=== PATIENT | male | born 1940 | race Caucasian/White ===

== ENCOUNTER 2018-06-05 08:30 | Observation (INO) ==
--- NOTE | 2018-06-05 09:18 | XR ---
EXAM DATE: 06/05/2018 9:01 AM EDT AGE/SEX: 78 years / Male INDICATIONS: Left base of 2nd and third digit infection and swelling. CLINICAL DATA: This is the patient's sequela encounter. Patient reports that signs and symptoms have been present for 3 days and indicates a pain score of 1/10. MEDICAL/SURGICAL HISTORY: None. None. COMPARISON: No prior exams available for comparison. FINDINGS: Soft tissue swelling base of the second and third digits without radiopaque foreign body or evidence for osteomyelitis CONCLUSION: Soft tissue swelling as above Electronically signed by: Severiano Mendiola MD 06/05/2018 9:17 AM EDT
[2018-06-05 09:26] LABS: Baso # (Auto) 0.1 th/mm3 (0.0-0.2); Eos # (Auto) 0.2 th/mm3 (0.0-0.4); Eos % (Auto) 1.6 % (0.0-4.0); Hematocrit 41.4 % (39.0-51.0); Hemoglobin 14.4 gm/dL (13.0-17.0); Lymph # (Auto) 2.1 th/mm3 (1.0-4.8); Lymph % (Auto) 19.2 % (9.0-44.0); Mean Corpuscular HGB Conc 34.7 % (32.0-36.0); Mean Corpuscular Hemoglobin 31.5 pg (27.0-34.0); Mean Corpuscular Volume 90.7 fL (80.0-100.0); Mean Platelet Volume 8.9 fL (7.0-11.0); Mono # (Auto) 0.8 th/mm3 (0.0-0.9); Mono % (Auto) 7.4 % (0.0-8.0); Neut # (Auto) 7.7 th/mm3 (1.8-7.7); Neut % (Auto) 70.8 % (16.0-70.0); Platelet Count 291 th/mm3 (150-450); Red Blood Count 4.56 mil/mm3 (4.50-5.90); Red Cell Distribution Width 15.9 % (11.6-17.2); White Blood Count 10.8 th/mm3 (4.0-11.0)
[2018-06-05 09:43] LABS: Prothrombin Time 10.4 sec (9.8-11.6)
[2018-06-05 09:44] LABS: Calcium 8.8 mg/dL (8.5-10.1); Carbon Dioxide 21.9 meq/L (21.0-32.0); Potassium 4.9 meq/L (3.5-5.1)
[2018-06-05] MEDS ORDERED: Vancomycin Inj 1 GM/200 ML PIGGYBACK IV.SIG SCH (10:00)
--- NOTE | 2018-06-05 10:36 | ED ---
HPI General Chief complaint: Skin/Abscess/Foreign Body Stated complaint: Skin Complaint Time Seen by Provider: 06/05/18 08:49 Source: patient Mode of arrival: ambulatory Limitations: no limitations History of Present Illness HPI narrative: Patient is a 78-year-old male who presents the emergency room complaints of cellulitis and abscess to his left hand. Patient reports that he noticed an abscess to his left hand and was seen in the emergency room on June 01, 2018. Patient was started on Keflex as well as Bactrim at the time , tetanus was updated. Patient reports that he has been compliant with his medications, reports that he noticed some streaking up his arm from the abscess site since yesterday. Patient reports that the infection is not getting better with Keflex and Bactrim. Patient does have wound cultures from June 01 which grew out MRSA. Related Data Home Medications Medication Instructions Recorded Confirmed aspirin [Aspirin Low Dose] 81 mg PO DAILY 06/01/18 06/01/18 coQ10 (ubiquinol) 100 mg PO DAILY 06/01/18 06/01/18 diclofenac sodium 75 mg PO Q OTHER DAY 06/01/18 06/01/18 folic acid 1 mg PO DAILY 06/01/18 06/05/18 methotrexate sodium 15 mg PO WEEKLY 06/01/18 06/05/18 multivitamin 1 tab PO DAILY 06/01/18 06/05/18 omeprazole 40 mg PO DAILY 06/01/18 06/05/18 oxybutynin chloride 10 mg PO DAILY 06/01/18 06/05/18 rosuvastatin [Crestor] 40 mg PO DAILY 06/01/18 06/05/18 tamsulosin 0.4 mg PO DAILY 06/01/18 06/05/18 Previous Rx's Medication Instructions Recorded cephalexin [Keflex] 500 mg PO QID 14 Days #56 cap 06/01/18 sulfamethoxazole-trimethoprim 1 tab PO BID 14 Days #28 tab 06/01/18 [Bactrim DS] Allergies Allergy/AdvReac Type Severity Reaction Status Date / Time No Known Allergies Allergy Verified 06/05/18 08:39 Review of Systems ROS: all other systems reviewed are negative [facility] Medical History Medical History Arthritis (Acute) Hypercholesteremia (Acute) Melanoma of back (Acute) Social History Social History Substance History: No History of Abuse Second Hand Smoke Exposure: No Smoking Status: Never smoker Tobacco Type: Cigarettes How Often Do You Have a Drink Containing Alcohol: Monthly or less Recent Travel in [facility] within the Last 8 Weeks: No Recent Out of Country Travel within the Last 8 Weeks: No Immunization History Tetanus Immunization: >5 Years Exam Narrative Exam Narrative: GENERAL: NAD SKIN: Focused skin assessment warm/dry. HEAD: Atraumatic. Normocephalic. EYES: Pupils equal and round. No scleral icterus. No injection or drainage. ENT: No nasal bleeding or discharge. Mucous membranes pink and moist. NECK: Trachea midline. No JVD. CARDIOVASCULAR: Regular rate and rhythm. No murmur appreciated. RESPIRATORY: No accessory muscle use. Clear to auscultation. Breath sounds equal bilaterally. GASTROINTESTINAL: Abdomen soft, non-tender, nondistended. Hepatic and splenic margins not palpable. MUSCULOSKELETAL: No obvious deformities. No clubbing. No cyanosis. No edema. Patient with a 4x6cm abscess with streaking up his whole arm to axilla NEUROLOGICAL: Awake and alert. No obvious cranial nerve deficits. Motor grossly within normal limits. Normal speech. PSYCHIATRIC: Appropriate mood and affect; insight and judgment normal. Course Initial Documented Vital Signs Temperature 97.9 F 06/05/18 08:35 Pulse Rate 81 06/05/18 08:35 Respiratory Rate 19 06/05/18 08:35 Blood Pressure 139/84 06/05/18 08:35 Pulse Oximetry 98 06/05/18 08:35 Last Documented Vital Signs Temperature 98.8 F 06/05/18 08:45 Pulse Rate 70 06/05/18 08:45 Respiratory Rate 16 06/05/18 08:45 Blood Pressure 137/83 06/05/18 08:45 Pulse Oximetry 98 06/05/18 08:35 Medical Decision Making MDM Narrative Medical decision making narrative: During the course of the patients emergency department visit, the patients history, examination, and differential diagnosis were reviewed with the patient. The patient was placed on a quality assurance monitor chassis with oximetry and frequent blood pressure monitoring. The patient had an IV access obtained and blood work sent for analysis. The patient was initially provided IV vancomycin, previous cultures were reviewed, he did grow out MRSA on 2017. Labs were reviewed, x-ray with no findings for osteomyelitis. Patient will require admission to the hospital for cellulitis as he failed outpatient treatment Case reviewed with Dr. Amaral who accepts pt to service Medical Screen Exam Complete: Yes Emergency Medical Condition: Yes Differential Diagnosis Differential Diagnosis: Abscess with cellulitis Medical Records Medical records reviewed: Yes I reviewed the patient's medical records. Lab Data Result diagrams: 06/05/18 09:15 06/05/18 09:15 Lab Results 06/05/18 06/05/18 06/05/18 Range/Units 09:15 09:15 09:15 WBC 10.8 (4.0-11.0) th/mm3 RBC 4.56 (4.50-5.90) mil/mm3 Hgb 14.4 (13.0-17.0) gm/dL Hct 41.4 (39.0-51.0) % MCV 90.7 (80.0-100.0) fL MCH 31.5 (27.0-34.0) pg MCHC 34.7 (32.0-36.0) % RDW 15.9 (11.6-17.2) % Plt Count 291 (150-450) th/mm3 MPV 8.9 (7.0-11.0) fL Neut % (Auto) 70.8 H (16.0-70.0) % Lymph % (Auto) 19.2 (9.0-44.0) % Sanborn % (Auto) 7.4 (0.0-8.0) % Eos % (Auto) 1.6 (0.0-4.0) % Baso % (Auto) 1.0 (0.0-2.0) % Neut # (Auto) 7.7 (1.8-7.7) th/mm3 Lymph # (Auto) 2.1 (1.0-4.8) th/mm3 [place]born # (Auto) 0.8 (0.0-0.9) th/mm3 Eos # (Auto) 0.2 (0.0-0.4) th/mm3 Baso # (Auto) 0.1 (0.0-0.2) th/mm3 WBC Differential . Differential Comment Auto diff final PT 10.4 (9.8-11.6) sec INR 1.0 Ratio Sodium 138 (136-145) meq/L Potassium 4.9 (3.5-5.1) meq/L Chloride 108 H (98-107) meq/L Carbon Dioxide 21.9 (21.0-32.0) meq/L Anion Gap 8 (5-15) meq/L BUN 13 (7-18) mg/dL Creatinine 1.13 (0.60-1.30) mg/dL Estimated GFR 63 L (>89) mL/min Random Glucose 90 (74-106) mg/dL Calcium 8.8 (8.5-10.1) mg/dL Imaging Data Attestation: I personally reviewed and interpreted this imaging study as follows : Radiologist's impression: Hand X-Ray 06/05/18 09:01 CONCLUSION: Soft tissue swelling as above Discharge Plan Discharge Disposition Patient Disposition: 30 Still Patient Discharge Condition Condition: Stable Discharge Details Diagnosis: Cellulitis and abscess of hand Physicians Team ED Provider: Jackie Humphreys Primary Care Provider: UNKNOWN, Rxs /Orders / Referrals /Forms Prescriptions: No Action methotrexate sodium 15 mg Tablet 15 mg PO WEEKLY RF: 0 oxybutynin chloride 10 mg Tablet Extended Release 24hr 10 mg PO DAILY RF: 0 tamsulosin 0.4 mg Capsule 0.4 mg PO DAILY RF: 0 folic acid 1 mg Tablet 1 mg PO DAILY RF: 0 rosuvastatin [Crestor] 40 mg Tablet 40 mg PO DAILY RF: 0 omeprazole 40 mg Capsule,Delayed Release(Dr/Ec) 40 mg PO DAILY RF: 0 aspirin [Aspirin Low Dose] 81 mg Tablet,Delayed Release (Dr/Ec) 81 mg PO DAILY RF: 0 coQ10 (ubiquinol) 100 mg Capsule 100 mg PO DAILY RF: 0 multivitamin Tablet 1 tab PO DAILY RF: 0 diclofenac sodium 75 mg Tablet,Delayed Release (Dr/Ec) 75 mg PO Q OTHER DAY RF: 0 sulfamethoxazole-trimethoprim [Bactrim DS] 800-160 mg tablet 1 tab PO BID 14 Days Qty: 28 RF: 0 cephalexin [Keflex] 500 mg capsule 500 mg PO QID 14 Days Qty: 56 RF: 0 Discharge Interventions Interventions: Vital Signs Last Done: 06/05/18 08:45 Status ED Status: With Doctor
[2018-06-05] MEDS ORDERED: Acetaminophen 325 MG Tablet PO PRN (11:59)
--- NOTE | 2018-06-05 12:08 | P.HPIM ---
History of Present Illness Primary Care Physician: UNKNOWN Chief Complaint: Left hand pain, erythema, swelling History of Present Illness: This patient is a 78-year-old male with a history of coronary artery disease status post stent approximately 10 years ago. 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 He ended up having a scrape on the dorsal aspect of his left hand. 2 days later he started to have pain and swelling of the left hand and was seen in our emergency department. The patient was discharged on Keflex and Bactrim and he was given a tetanus shot as per documentation. Wound cultures from that day grew MRSA. The patient symptoms got worse and now he returned to our emergency department for evaluation and care. He denies having any fevers or chills. No chest pain, no shortness of breath, no diarrhea, no nausea or vomiting. Past medical history coronary artery disease status post stent 10 years ago, BPH Surgical history none Family history noncontributory Social history patient denies any history of tobacco use. He drinks socially approximately 2-3 drinks per week. Inpatient Certification: I certify that the inpatient services were ordered in accordance with Medicare regulations governing the order. This includes certification that hospital inpatient services are reasonable and necessary and in the case of services not specified as inpatient-only under 42 CFR 419.22(n), that they are appropriately provided as inpatient services in accordance to with the 2-midnight benchmark under 43 CFR 412.3(e) Review of Systems All other systems reviewed negative except as stated in HPI [facility] - History History Provided By: Patient - Medical History Medical History: Medical History (Last Reviewed 06/05/18 @ 10:33 by Jackie Humphreys) Arthritis Hypercholesteremia Melanoma of back - Tobacco History Second Hand Smoke Exposure: No Tobacco Use In Past 30 Days: No Smoking Status: Never smoker Tobacco Type: Cigarettes - Alcohol History How Often Do You Have a Drink Containing Alcohol: Monthly or less - Substance Use History Substance History: No History of Abuse - Travel History Recent Travel in the [place] Within the Last 8 Weeks: No Recent Travel Out of the Country Within the Last 8 Weeks: No - Immunization History Tetanus Immunization: >5 Years Medications and Allergies Active Medications: Active Medications Acetaminophen (Tylenol) 650 mg PO Q4H PRN PRN Reason: PAIN 1-10 AND/OR FEVER >101F Aspirin (Aspirin Chew) 81 mg PO DAILY KIRBY Atorvastatin Calcium (Lipitor) 40 mg PO HS KIRBY Vancomycin/Sodium Chloride (Vancomycin Inj) 1 gm in 200 mls @ 200 mls/hr IV.SIG SLITTER OPERATOR KIRBY Ceftriaxone Sodium 1,000 mg/ (Sodium Chloride) 100 mls @ 200 mls/hr IV.SIG Q24H KIRBY Sodium Chloride (Ns Inj) 1,000 mls @ 100 mls/hr IV.CONT .Q10H KIRBY Sodium Chloride (Ns Flush) 2 ml IV.FLUSH PRN PRN PRN Reason: FLUSH AFTER USING IV ACCESS Tamsulosin HCl (Flomax) 0.4 mg PO DAILY K[facility]BY Allergies Allergy/AdvReac Type Severity Reaction Status Date / Time No Known Allergies Allergy Verified 06/05/18 08:39 Home Medications Medication Instructions Recorded Confirmed Type aspirin [Aspirin Low Dose] 81 mg PO DAILY 06/01/18 06/01/18 History coQ10 (ubiquinol) 100 mg PO DAILY 06/01/18 06/01/18 History diclofenac sodium 75 mg PO Q OTHER DAY 06/01/18 06/01/18 History folic acid 1 mg PO DAILY 06/01/18 06/05/18 History methotrexate sodium 15 mg PO WEEKLY 06/01/18 06/05/18 History multivitamin 1 tab PO DAILY 06/01/18 06/05/18 History omeprazole 40 mg PO DAILY 06/01/18 06/05/18 History oxybutynin chloride 10 mg PO DAILY 06/01/18 06/05/18 History rosuvastatin [Crestor] 40 mg PO DAILY 06/01/18 06/05/18 History tamsulosin 0.4 mg PO DAILY 06/01/18 06/05/18 History Exam Vital signs: Vital Signs 06/05/18 08:35 06/05/18 08:45 Temperature 97.9 F 98.8 F Pulse Rate 81 70 Respiratory Rate 19 16 Blood Pressure 139/84 137/83 Pulse Oximetry 98 Intake & Output 06/04/18 06/05/18 06/05/18 18:59 06:59 18:59 Weight 111.13 kg Narrative: General patient complains of mild pain in the left hand. HEENT extraocular movements are intact, clear oropharyngeal mucosa, no JVD Cardiovascular S1-S2 audible, RRR, no murmurs rubs or gallops Respiratory clear to auscultation bilaterally Abdomen soft, nontender, nondistended, normal bowel sounds Extremities pain and swelling of the left dorsal hand with redness tracking up the left upper extremity up to the left bicep. Neuro no neurological deficits. Results - Labs CBC & Chem 7: 06/05/18 09:15 06/05/18 09:15 Labs: Short CBC 06/05/18 Range/Units 09:15 WBC 10.8 (4.0-11.0) th/mm3 Hgb 14.4 (13.0-17.0) gm/dL Hct 41.4 (39.0-51.0) % Plt Count 291 (150-450) th/mm3 BMP 06/05/18 09:15 Sodium 138 Potassium 4.9 Chloride 108 H Carbon Dioxide 21.9 BUN 13 Creatinine 1.13 Calcium 8.8 - Imaging Impressions Hand X-Ray 06/05/18 09:01 CONCLUSION: Soft tissue swelling as above Caprini VTE Risk Assessment Caprini VTE Risk Assessment: No/Low Risk (score <= 1) Caprini Risk Assessment Model: Point Value = 1 Point Value = 2 Point Value = 3 Point Value = 5 Age 41-60 Minor surgery BMI > 25 kg/m2 Swollen legs Varicose veins or History of unexplained or recurrent spontaneous Oral contraceptives or hormone replacement Sepsis (< 1 month) Serious lung disease, including pneumonia (< 1 month) Abnormal pulmonary function Acute myocardial infarction Congestive heart failure (< 1 month) History of inflammatory bowel disease Medical patient at bed rest Age 61-74 Arthroscopic surgery Major open surgery (> 45 min) Laparoscopic surgery (> 45 min) Malignancy Confined to bed (> 72 hours) Immobilizing plaster cast Central venous access Age >= 75 History of VTE Family history of VTE Factor V Leiden Prothrombin [id number] Lupus anticoagulant Anticardiolipin antibodies Elevated serum homocysteine Heparin-induced thrombocytopenia Other congenital or acquired thrombophilia Stroke (< 1 month) Elective arthroplasty Hip, pelvis, or leg fracture Acute spinal cord injury (< 1 month) Prophylaxis Regimen: Total Risk Factor Score Risk Level Prophylaxis Regimen 0-1 Low Early ambulation 2 Moderate Order ONE of the following: *Sequential Compression Device (SCD) *Heparin 5000 units SQ BID 3-4 Higher Order ONE of the following medications: *Heparin 5000 units SQ TID *Enoxaparin/Lovenox 40 mg SQ daily (WT < 150 kg, CrCl > 30 mL/min) *Enoxaparin/Lovenox 30 mg SQ daily (WT < 150 kg, CrCl > 10-29 mL/min) *Enoxaparin/Lovenox 30 mg SQ BID (WT < 150 kg, CrCl > 30 mL/min) AND/OR *Sequential Compression Device (SCD) 5 or more Highest Order ONE of the following medications: *Heparin 5000 units SQ TID (Preferred with Epidurals) *Enoxaparin/Lovenox 40 mg SQ daily (WT < 150 kg, CrCl > 30 mL/min) *Enoxaparin/Lovenox 30 mg SQ daily (WT < 150 kg, CrCl > 10-29 mL/min) *Enoxaparin/Lovenox 30 mg SQ BID (WT < 150 kg, CrCl > 30 mL/min) AND *Sequential Compression Device (SCD) Assessment and Plan - Plan This patient is a 78-year-old male with a history of coronary artery disease status post stent approximately 10 years ago. 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 He ended up having a scrape on the dorsal aspect of his left hand. 2 days later he started to have pain and swelling of the left hand and was seen in our emergency department. The patient was discharged on Keflex and Bactrim and he was given a tetanus shot as per documentation. Wound cultures from that day grew MRSA. The patient symptoms got worse and now he returned to our emergency department for evaluation and care. He denies having any fevers or chills. 1. Left hand cellulitis failed outpatient Keflex and Bactrim. The patient is afebrile and has a normal WBC count. He does have some redness going up the left side of his arm up to the mid medial bicep region. He was started on IV vancomycin and Rocephin will also be added. He will be given Tylenol as needed for pain. The patient's pain medication regimen will be adjusted if needed. Continue IV fluids. The patient will likely need 1 or 2 days of IV antibiotics and can then be transitioned over to p.o. antibiotics. Blood cultures will be followed up. All consult hand surgery to evaluate the patient's hand for possible incision and drainage. 2. Coronary artery disease status post stent Continue aspirin Continue statin 3. BPH Continue Flomax The patient is ambulatory no pharmacotherapy for DVT prophylaxis.
[2018-06-05] MEDS: Sod Chloride 0.9% Inj 1,000 ML IV.CONT SCH ×3 (13:31→22:48)
--- NOTE | 2018-06-05 17:19 | P.CON ---
History of Present Illness Service: Hand surgery Consult date: 06/05/18 Primary Care Provider: UNKNOWN Chief Complaint: Left hand pain, erythema, swelling History of Present Illness: History obtained from chart and patient This patient is a 78-year-old male who presents with a several day history of left dorsal hand pain. Patient recalls scratching his hand underneath a dirty table while cleaning a floor almost 1 week ago. He reports that since then the left dorsal hand became progressively more swollen, erythematous, and painful. 2 days later he started to have pain and swelling of the left hand and was seen in our emergency department. The patient was discharged on Keflex and Bactrim and he was given a tetanus shot as per documentation. Wound cultures from that day grew MRSA. The patient symptoms got worse and now he returned to our emergency department for evaluation and care. He denies having any fevers or chills. No chest pain, no shortness of breath, no diarrhea, no nausea or vomiting. Past medical history coronary artery disease status post stent 10 years ago, BPH Surgical history none Family history noncontributory Social history patient denies any history of tobacco use. He drinks socially approximately 2-3 drinks per week. Medication list reviewed Review of Systems All other systems reviewed negative except as stated in HPI [facility] - History History Provided By: Patient - Medical History Medical History: Medical History (Last Reviewed 06/05/18 @ 10:33 by Jackie Humphreys) Arthritis Hypercholesteremia Melanoma of back - Tobacco History Second Hand Smoke Exposure: No Tobacco Use In Past 30 Days: No Smoking Status: Never smoker Tobacco Type: Cigarettes - Alcohol History How Often Do You Have a Drink Containing Alcohol: Monthly or less - Substance Use History Substance History: No History of Abuse - Travel History Recent Travel in the [place] Within the Last 8 Weeks: No Recent Travel Out of the Country Within the Last 8 Weeks: No - Immunization History Tetanus Immunization: >5 Years [facility] - History History Provided By: Patient - Medical History Medical History: Medical History (Last Updated 06/05/18 @ 14:45 by Lana Almanzar) MDRO (multiple drug resistant organisms) resistance Onset Date: ~06/01/18 Arthritis Hypercholesteremia Melanoma of back - Tobacco History Second Hand Smoke Exposure: No Tobacco Use In Past 30 Days: No Smoking Status: Former smoker Tobacco Type: Cigarettes - Alcohol History How Often Do You Have a Drink Containing Alcohol: Monthly or less - Substance Use History Substance History: No History of Abuse - Travel History Recent Travel in the [place] Within the Last 8 Weeks: No Recent Travel Out of the Country Within the Last 8 Weeks: No - Immunization History Tetanus Immunization: <5 Years Medications and Allergies Active Medications: Active Medications Acetaminophen (Tylenol) 650 mg PO Q4H PRN PRN Reason: PAIN 1-10 AND/OR FEVER >101F Aspirin (Aspirin Chew) 81 mg PO DAILY KIRBY Atorvastatin Calcium (Lipitor) 40 mg PO HS KIRBY Vancomycin/Sodium Chloride (Vancomycin Inj) 1 gm in 200 mls @ 200 mls/hr IV.SIG CONSUMER INSIGHT ANALYST KIRBY Ceftriaxone Sodium 1,000 mg/ (Sodium Chloride) 100 mls @ 200 mls/hr IV.SIG Q24H KIRBY Last Infusion: 06/05/18 14:15 Dose: Infused Sodium Chloride (Ns Inj) 1,000 mls @ 100 mls/hr IV.CONT .Q10H KIRBY Last Admin: 06/05/18 13:31 Dose: 100 mls/hr Sodium Chloride (Ns Flush) 2 ml IV.FLUSH PRN PRN PRN Reason: FLUSH AFTER USING IV ACCESS Tamsulosin HCl (Flomax) 0.4 mg PO DAILY [facility] Allergies Allergy/AdvReac Type Severity Reaction Status Date / Time No Known Allergies Allergy Verified 06/05/18 08:39 Home Medications Medication Instructions Recorded Confirmed Type folic acid 1 mg PO DAILY 06/01/18 06/05/18 History methotrexate sodium 15 mg PO WEEKLY 06/01/18 06/05/18 History multivitamin 1 tab PO DAILY 06/01/18 06/05/18 History omeprazole 40 mg PO DAILY 06/01/18 06/05/18 History oxybutynin chloride 10 mg PO DAILY 06/01/18 06/05/18 History rosuvastatin [Crestor] 40 mg PO DAILY 06/01/18 06/05/18 History tamsulosin 0.4 mg PO DAILY 06/01/18 06/05/18 History Physical Exam Vital signs: Vital Signs 06/05/18 08:35 06/05/18 08:45 Temperature 97.9 F 98.8 F Pulse Rate 81 70 Respiratory Rate 19 16 Blood Pressure 139/84 137/83 Pulse Oximetry 98 Intake & Output 06/04/18 06/05/18 06/05/18 18:59 06:59 18:59 Intake Total 100 / 100 Balance 100 / 100 Weight 111.13 kg Intake: IV 100 / 100 Rocephin Inj 1,000 MG In NS Inj 100 / 100 100 ML @ 200 mls/hr IV.SIG Q24H KIRBY Rx#:[id number] Narrative: Left second webspace with roughly 3 cm raised erythematous area with central sinus draining purulence Wound sinus opening bluntly probed with the wooden end of a Q-tip without significant tracking No undrained purulence appreciated Moderate lymphatic streaking to mid forearm Full active range of motion No volar tenderness/erythema Assessment and Plan - Assessment (1) Cellulitis and abscess of hand Code(s): L03.119 - Cellulitis of unspecified part of limb; L02.519 - Cutaneous abscess of unspecified hand Status: Acute - Plan 78-year-old male with left dorsal hand abscess which appears to be spontaneously draining, with moderate lymphatic streaking/cellulitis No undrained collections appreciated Agree with IV antibiotics per primary Please call with questions
[2018-06-06] MEDS: Sod Chloride 0.9% Inj 1,000 ML IV.CONT SCH ×4 (05:52→20:05)
--- NOTE | 2018-06-06 11:50 | P.PN ---
Subjective Interval history: Patient is resting comfortably in bed. Upset with his bed, and table. Has many questions about his care. 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 Otherwise doing well. No fever, chills, nightsweats, nausea, vomiting, chest pain. Physical Exam Vital signs: Vital Signs 06/05/18 16:00 06/05/18 20:00 06/06/18 00:00 Temperature 97.9 F 98.8 F 98.2 F Pulse Rate 67 69 68 Respiratory Rate 18 16 16 Blood Pressure 131/66 131/66 126/77 Pulse Oximetry 95 98 98 06/06/18 04:00 06/06/18 08:00 Temperature 98.3 F 97.9 F Pulse Rate 65 71 Respiratory Rate 16 23 Blood Pressure 113/74 138/69 Pulse Oximetry 97 98 Intake & Output 06/05/18 06/06/18 06/06/18 18:59 06:59 18:59 Intake Total 100 / 100 2000 / 2000 500 / 500 Output Total 750 / 750 Balance 100 / 100 1250 / 1250 500 / 500 Weight 111.13 kg 107 kg Intake: IV 100 / 100 2000 / 2000 500 / 500 NS Inj 1,000 ML @ 100 mls/hr IV 2000 / 2000 500 / 500 .CONT .Q10H [facility] Rx#:[id number] Rocephin Inj 1,000 MG In NS Inj 100 / 100 100 ML @ 200 mls/hr IV.SIG Q24H [facility] Rx#:[id number] Output: Urine 750 / 750 Other: Weight On Admission 107 kg Narrative: GENERAL: 78 year old male in NAD, alert and oriented x3. SKIN: Warm and dry. Tender 2 cm erythematous patch on the left dorsal hand, with eschar and pustule. Streaks of tender erythema on the forearm and upper arm. HEAD: Atraumatic. Normocephalic. EYES: Pupils equal and round. No scleral icterus. No injection or drainage. ENT: No nasal bleeding or discharge. Mucous membranes pink and moist. NECK: Trachea midline. No JVD. CARDIOVASCULAR: Regular rate and rhythm. RESPIRATORY: No accessory muscle use. Clear to auscultation. Breath sounds equal bilaterally. GASTROINTESTINAL: Abdomen soft, non-tender, nondistended. Hepatic and splenic margins not palpable. MUSCULOSKELETAL: Extremities without clubbing, cyanosis, or edema. No obvious deformities. NEUROLOGICAL: Awake and alert. No obvious cranial nerve deficits. Motor grossly within normal limits. Normal speech. PSYCHIATRIC: Appropriate mood and affect; insight and judgment normal. Results - Labs CBC & Chem 7: 06/05/18 09:15 06/05/18 09:15 Microbiology 06/05/18 09:15 Blood - Peripheral Aerobic Blood Culture - Preliminary No growth in 1 day 06/05/18 09:15 Blood - Peripheral Anaerobic Blood Culture - Preliminary No growth in 1 day 06/05/18 09:10 Blood - Peripheral Aerobic Blood Culture - Preliminary No growth in 1 day 06/05/18 09:10 Blood - Peripheral Anaerobic Blood Culture - Preliminary No growth in 1 day Assessment and Plan - Assessment (1) Cellulitis and abscess of hand Code(s): L03.119 - Cellulitis of unspecified part of limb; L02.519 - Cutaneous abscess of unspecified hand Status: Acute - Plan Left hand cellulitis failed outpatient Keflex and Bactrim. The patient is afebrile and has a normal WBC count. He does have some redness going up the left side of his arm up to the mid medial bicep region. IV vancomycin and Rocephin Tylenol PRN pain Continue IV fluids. The patient will likely need 1 or 2 days of IV antibiotics and can then be transitioned over to p.o. antibiotics. Blood cultures pending Hand surgery consulted: No undrained collections appreciated, Agree with IV antibiotics per primary Coronary artery disease status post stent Continue aspirin Continue statin BPH Continue Flomax Polychondritis Patient experiences SOB due to polychondritis, takes diclofenac at home Restart diclofenac DVT ppx: Early ambulation Code Status: Full Discharge Planning: Pending blood cultures and abx response
[2018-06-06] MEDS ORDERED: Vancomycin Consult Pharmacy OTHER PRN (13:00)
[2018-06-06] MEDS ORDERED: Vancomycin Inj 1,000 MG in Sodium Chlor 0.9% Inj 250 ML IV.SIG SCH (13:01)
--- NOTE | 2018-06-06 13:10 | P.PN ---
Subjective Interval history: Patient in [facility] Has some pain at the left arm , erythema is extending to upper arm tracking. Has normal ROM of wrist , fingers. No n/v/d/c. Denies chest pain or sob No fever or chills Physical Exam Vital signs: Vital Signs 06/05/18 16:00 06/05/18 20:00 06/06/18 00:00 Temperature 97.9 F 98.8 F 98.2 F Pulse Rate 67 69 68 Respiratory Rate 18 16 16 Blood Pressure 131/66 131/66 126/77 Pulse Oximetry 95 98 98 06/06/18 04:00 06/06/18 08:00 06/06/18 12:00 Temperature 98.3 F 97.9 F 97.3 F L Pulse Rate 65 71 70 Respiratory Rate 16 23 23 Blood Pressure 113/74 138/69 137/82 Pulse Oximetry 97 98 97 Intake & Output 06/05/18 06/06/18 06/06/18 18:59 06:59 18:59 Intake Total 100 / 100 2000 / 2000 500 / 500 Output Total 750 / 750 Balance 100 / 100 1250 / 1250 500 / 500 Weight 111.13 kg 107 kg Intake: IV 100 / 100 2000 / 2000 500 / 500 NS Inj 1,000 ML @ 100 mls/hr IV 2000 / 2000 500 / 500 .CONT .Q10H [facility] Rx#:[id number] Rocephin Inj 1,000 MG In NS Inj 100 / 100 100 ML @ 200 mls/hr IV.SIG Q24H [facility] Rx#:[id number] Output: Urine 750 / 750 Other: Weight On Admission 107 kg Narrative: GENERAL: 78 year old male in [facility], alert and oriented x3. SKIN: Warm and dry. Tender 2 cm erythematous patch on the left dorsal hand, with eschar and pustule. Streaks of tender erythema on the forearm and upper arm. CARDIOVASCULAR: Regular rate and rhythm. RESPIRATORY: No accessory muscle use. Clear to auscultation. Breath sounds equal bilaterally. GASTROINTESTINAL: Abdomen soft, non-tender, nondistended. Hepatic and splenic margins not palpable. MUSCULOSKELETAL: Extremities without clubbing, cyanosis, or edema. No obvious deformities. NEUROLOGICAL: Awake and alert. No obvious cranial nerve deficits. Motor grossly within normal limits. Normal speech. PSYCHIATRIC: Appropriate mood and affect; insight and judgment normal. Results - Labs CBC & Chem 7: 06/05/18 09:15 06/05/18 09:15 Microbiology 06/05/18 09:15 Blood - Peripheral Aerobic Blood Culture - Preliminary No growth in 1 day 06/05/18 09:15 Blood - Peripheral Anaerobic Blood Culture - Preliminary No growth in 1 day 06/05/18 09:10 Blood - Peripheral Aerobic Blood Culture - Preliminary No growth in 1 day 06/05/18 09:10 Blood - Peripheral Anaerobic Blood Culture - Preliminary No growth in 1 day Assessment and Plan - Plan Left hand cellulitis failed outpatient Keflex and Bactrim. The patient is afebrile and has a normal WBC count. He does have some redness going up the left side of his arm up to the mid medial bicep region. IV vancomycin, consult pharmacy for vanco level and DC Rocephin. Will consult ID as patient with failed treatment as OP Tylenol PRN pain Continue IV fluids. The patient will likely need 1 or 2 days of IV antibiotics and can then be transitioned over to p.o. antibiotics. Blood cultures pending Hand surgery consulted: No surgical intervention recommended at this time, recommends continuing IV abx Coronary artery disease status post stent Continue aspirin Continue statin BPH Continue Flomax Polychondritis Patient experiences SOB due to polychondritis, takes diclofenac at home Restart diclofenac DVT ppx: Early ambulation Code Status: Full Discharge Planning: Pending blood cultures and abx response, ID and hand surgeon clearance
[2018-06-06] MEDS: Tolterodine Tartrate LA 4 MG Capsule PO SCH (15:37)
[2018-06-06] MEDS: Vancomycin Inj 1,500 MG in Sodium Chlor 0.9% Inj 500 ML IV.SIG SCH (15:38)
--- NOTE | 2018-06-06 17:37 | P.PNADD ---
Addendum to Inpatient Note Additional information: pt seen around 1630, chart reviewed full note to follow pete PEÑA
--- NOTE | 2018-06-06 17:37 | P.CONID ---
History of Present Illness Service: ID Consult date: 06/06/18 Requesting Physician: Linda Calzada Reason for Consult: hand infection Primary Care Provider: UNKNOWN Chief Complaint: Left hand pain, erythema, swelling History of Present Illness: 78 yo male w/o past med history developped progressive swelling, redness of dorsum of his L hand Cant recall how he got it Denies known trauma No fresh/salt water reacreational exposure no fever no leuocytosis Started o empiric abx with marked improvement See by hand surgeron who recommended conservative tx CUlture + for MRSA Review of Systems All other systems reviewed negative except as stated in HPI PMFSH - History History Provided By: Patient - Medical History Medical History: Medical History (Last Reviewed 06/07/18 @ 00:43 by Kinga Man MD) MDRO (multiple drug resistant organisms) resistance Onset Date: ~06/01/18 Arthritis Hypercholesteremia Melanoma of back - Family History Family History: Family History (Last Updated 06/07/18 @ 00:43 by Kinga Man MD) Other No pertinent family history - Social History I have reviewed the patient's Social History: Yes - Tobacco History Second Hand Smoke Exposure: No Tobacco Use In Past 30 Days: No Smoking Status: Former smoker Tobacco Type: Cigarettes - Alcohol History How Often Do You Have a Drink Containing Alcohol: Monthly or less - Substance Use History Substance History: No History of Abuse - Travel History Recent Travel in the [place] Within the Last 8 Weeks: No Recent Travel Out of the Country Within the Last 8 Weeks: No - Immunization History Tetanus Immunization: <5 Years Medications and Allergies Active Medications: Active Medications Acetaminophen (Tylenol) 650 mg PO Q4H PRN PRN Reason: PAIN 1-10 AND/OR FEVER >101F Aspirin (Aspirin Chew) 81 mg PO DAILY [facility] Last Admin: 06/06/18 10:07 Dose: 81 mg Atorvastatin Calcium (Lipitor) 80 mg PO DAILY [facility] Diclofenac Sodium (Voltared Dr.) 25 mg PO BID PRN PRN Reason: pain Folic Acid (Folic Acid) 1 mg PO DAILY [facility] Vancomycin/Sodium Chloride (Vancomycin Inj) 1 gm in 200 mls @ 200 mls/hr IV.SIG [facility] Sodium Chloride (Ns Inj) 1,000 mls @ 100 mls/hr IV.CONT .Q10H [facility] Last Admin: 06/06/18 15:41 Dose: 100 mls/hr Vancomycin HCl 1,500 mg/ (Sodium Chloride) 515 mls @ 250 mls/hr IV.SIG Q18H [facility] Last Admin: 06/06/18 15:38 Dose: 250 mls/hr Miscellaneous Information ([facility] Ordered Lab Info) 0 each OTHER ONCE ONE Stop: 06/08/18 21:46 Pantoprazole Sodium (Protonix) 40 mg PO DAILY [facility] Last Admin: 06/06/18 15:36 Dose: 40 mg Pharmacy Profile Note (Vancomycin Consult Pharmacy) 1 each OTHER UNSCH PRN PRN Reason: Pharmacy to dose Sodium Chloride (Ns Flush) 2 ml IV.FLUSH PRN PRN PRN Reason: FLUSH AFTER USING IV ACCESS Tamsulosin HCl (Flomax) 0.4 mg PO DAILY [facility] Last Admin: 06/06/18 15:38 Dose: 0.4 mg Tolterodine Tartrate (Detrol La) 4 mg PO DAILY [facility] Last Admin: 06/06/18 15:37 Dose: 4 mg Allergies Allergy/AdvReac Type Severity Reaction Status Date / Time No Known Allergies Allergy Verified 06/05/18 08:39 Home Medications Medication Instructions Recorded Confirmed Type folic acid 1 mg PO DAILY 06/01/18 06/05/18 History methotrexate sodium 15 mg PO WEEKLY 06/01/18 06/05/18 History multivitamin 1 tab PO DAILY 06/01/18 06/05/18 History omeprazole 40 mg PO DAILY 06/01/18 06/05/18 History oxybutynin chloride 10 mg PO DAILY 06/01/18 06/05/18 History rosuvastatin [Crestor] 40 mg PO DAILY 06/01/18 06/05/18 History tamsulosin 0.4 mg PO DAILY 06/01/18 06/05/18 History Exam Vital signs: Vital Signs 06/05/18 20:00 06/06/18 00:00 06/06/18 04:00 Temperature 98.8 F 98.2 F 98.3 F Pulse Rate 69 68 65 Respiratory Rate 16 16 16 Blood Pressure 131/66 126/77 113/74 Pulse Oximetry 98 98 97 06/06/18 08:00 06/06/18 12:00 06/06/18 16:00 Temperature 97.9 F 97.3 F L 97.2 F L Pulse Rate 71 70 62 Respiratory Rate 23 23 22 Blood Pressure 138/69 137/82 136/80 Pulse Oximetry 98 97 98 Intake & Output 06/05/18 06/06/18 06/06/18 18:59 06:59 18:59 Intake Total 100 / 100 2000 / 2000 1100 / 1100 Output Total 750 / 750 Balance 100 / 100 1250 / 1250 1100 / 1100 Weight 111.13 kg 107 kg Intake: IV 100 / 100 2000 / 2000 1100 / 1100 NS Inj 1,000 ML @ 100 mls/hr IV 2000 / 2000 1000 / 1000 .CONT .Q10H [facility] Rx#:[id number] Rocephin Inj 1,000 MG In NS Inj 100 / 100 100 / 100 100 ML @ 200 mls/hr IV.SIG Q24H [facility] Rx#:[id number] Output: Urine 750 / 750 Other: Date of Last Bowel Movement 06/06/18 Weight On Admission 107 kg - Constitutional no acute distress, average body habitus - Routine HEENT Exam Head: Present: normocephalic, atraumatic Eye: Present: EOMI, PERRL. Absent: conjunctival icterus ENT: Present: mucous membranes moist, oropharynx clear - Routine Neck Exam Present: supple. Absent: JVD - Routine Respiratory Exam Present: CTA bilaterally. Absent: accessory muscle use, distant breath sounds - Routine Cardiovascular Exam Present: RRR, S1, S2. Absent: murmur, gallop - Routine Abdominal Exam Present: soft, normoactive bowel sounds. Absent: tenderness, distended, organomegaly, mass - Routine Extremities Exam Absent: cyanosis, clubbing, edema Comments: Erythema, midl edema of dorsum of L hand small area of fluctuant lesion, not draining + ascending lymphagitic streaks on upper inner arm - Routine Skin Exam Present: dry, warm. Absent: jaundice, rash - Routine Neurological Exam Present: alert, oriented X3, CN II-XII intact, moving all extremities, normal speech Results - Labs CBC & Chem 7: 06/05/18 09:15 06/05/18 09:15 Assessment and Plan - Plan L hand abscess, MRSA cellulitis, lymphngitis LUE cont vancomycin monitor hand for the need of I+D dw Dr Calzada
[2018-06-07] MEDS: Sod Chloride 0.9% Inj 1,000 ML IV.CONT SCH ×2 (03:00→14:27)
[2018-06-07] MEDS: Tolterodine Tartrate LA 4 MG Capsule PO SCH (09:58)
[2018-06-07] MEDS: Vancomycin Inj 1,500 MG in Sodium Chlor 0.9% Inj 500 ML IV.SIG SCH (09:59)
[2018-06-07] MEDS: Folic Acid 1 MG Tablet PO SCH (09:59)
--- NOTE | 2018-06-07 10:54 | P.PN ---
Subjective Interval history: Patient sitting on couch in room. Patient is distressed, had to go to the ER downstairs today. Has heard that she is "just resting" now and is more relaxed. He states his hand is improving and becoming less red. He denies fever , chills, chest pain, SOB, changes in urinary habits Physical Exam Vital signs: Vital Signs 06/06/18 12:00 06/06/18 16:00 06/06/18 20:00 Temperature 97.3 F L 97.2 F L 98 F Pulse Rate 70 62 67 Respiratory Rate 23 22 18 Blood Pressure 137/82 136/80 128/77 Pulse Oximetry 97 98 96 06/07/18 00:00 06/07/18 04:00 06/07/18 08:00 Temperature 97.7 F 97.7 F 97.6 F Pulse Rate 51 L 62 60 Respiratory Rate 18 18 23 Blood Pressure 112/67 121/71 124/72 Pulse Oximetry 97 97 98 Intake & Output 06/06/18 06/07/18 06/07/18 18:59 06:59 18:59 Intake Total 2575 / 2575 1210 / 1210 Output Total 750 / 750 Balance 2575 / 2575 460 / 460 Weight 107 kg Intake: IV 1615 / 1615 1000 / 1000 NS Inj 1,000 ML @ 100 mls/hr IV 1000 / 1000 1000 / 1000 .CONT .Q10H [facility] Rx#:[id number] Vancomycin Inj 1,500 MG In NS 515 / 515 Inj 500 ML @ 250 mls/hr IV.SIG Q18H [facility] Rx#:[id number] Rocephin Inj 1,000 MG In NS Inj 100 / 100 100 ML @ 200 mls/hr IV.SIG Q24H [facility] Rx#:[id number] Oral 960 / 960 210 / 210 Output: Urine 750 / 750 Other: # Voids 4 1 Date of Last Bowel Movement 06/06/18 06/06/18 Narrative: GENERAL: 78 year old male in NAD, alert and oriented x3. SKIN: Warm and dry. Tender 2 cm erythematous patch on the left dorsal hand, with eschar and pustule. Streaks of tender erythema on the forearm and upper arm. CARDIOVASCULAR: Regular rate and rhythm. RESPIRATORY: No accessory muscle use. Clear to auscultation. Breath sounds equal bilaterally. GASTROINTESTINAL: Abdomen soft, non-tender, nondistended. Hepatic and splenic margins not palpable. MUSCULOSKELETAL: Extremities without clubbing, cyanosis, or edema. No obvious deformities. NEUROLOGICAL: Awake and alert. No obvious cranial nerve deficits. Motor grossly within normal limits. Normal speech. PSYCHIATRIC: Appropriate mood and affect; insight and judgment normal. Results - Labs CBC & Chem 7: 06/05/18 09:15 06/05/18 09:15 Microbiology 06/05/18 09:15 Blood - Peripheral Aerobic Blood Culture - Preliminary No growth in 1 day 06/05/18 09:15 Blood - Peripheral Anaerobic Blood Culture - Preliminary No growth in 1 day 06/05/18 09:10 Blood - Peripheral Aerobic Blood Culture - Preliminary No growth in 1 day 06/05/18 09:10 Blood - Peripheral Anaerobic Blood Culture - Preliminary No growth in 1 day Assessment and Plan - Assessment (1) Cellulitis and abscess of hand Code(s): L03.119 - Cellulitis of unspecified part of limb; L02.519 - Cutaneous abscess of unspecified hand Status: Acute - Plan Left hand cellulitis failed outpatient Keflex and Bactrim. The patient is afebrile and has a normal WBC count. He does have some redness going up the left side of his arm up to the mid medial bicep region. IV vancomycin Tylenol PRN pain Continue IV fluids. The patient will likely need 1 or 2 days of IV antibiotics and can then be transitioned over to p.o. antibiotics. Blood cultures pending Hand surgery consulted: No undrained collections appreciated, Agree with IV antibiotics per primary Coronary artery disease status post stent Continue aspirin Continue statin BPH Continue Flomax Polychondritis Patient experiences SOB due to polychondritis, takes diclofenac at home Restart diclofenac DVT ppx: Early ambulation Discharge Planning: Pending blood cultures and abx response
--- NOTE | 2018-06-07 14:18 | P.PN ---
Subjective Interval history: In bed, appears in nad He was upset in the morning as his is also in the hospital in the ED. However she is much better now and he feel better Says no fever or chills overnight Says his wound is getting better and hand doctor was able to squish some pus. Pain is fairly controlled by meds No n/v/d/c. No palpitations or cough Physical Exam Vital signs: Vital Signs 06/06/18 16:00 06/06/18 20:00 06/07/18 00:00 Temperature 97.2 F L 98 F 97.7 F Pulse Rate 62 67 51 L Respiratory Rate 22 18 18 Blood Pressure 136/80 128/77 112/67 Pulse Oximetry 98 96 97 06/07/18 04:00 06/07/18 08:00 06/07/18 12:00 Temperature 97.7 F 97.6 F 97.7 F Pulse Rate 62 60 68 Respiratory Rate 18 23 22 Blood Pressure 121/71 124/72 123/70 Pulse Oximetry 97 99 99 Intake & Output 06/06/18 06/07/18 06/07/18 18:59 06:59 18:59 Intake Total 2575 / 2575 1210 / 1210 515 / 515 Output Total 750 / 750 Balance 2575 / 2575 460 / 460 515 / 515 Weight 107 kg Intake: IV 1615 / 1615 1000 / 1000 515 / 515 NS Inj 1,000 ML @ 100 mls/hr IV 1000 / 1000 1000 / 1000 .CONT .Q10H [facility] Rx#:[id number] Vancomycin Inj 1,500 MG In NS 515 / 515 515 / 515 Inj 500 ML @ 250 mls/hr IV.SIG Q18H [facility] Rx#:[id number] Rocephin Inj 1,000 MG In NS Inj 100 / 100 100 ML @ 200 mls/hr IV.SIG Q24H [facility] Rx#:[id number] Oral 960 / 960 210 / 210 Output: Urine 750 / 750 Other: # Voids 4 1 Date of Last Bowel Movement 06/06/18 06/06/18 Narrative: GENERAL: 78 year old male in [facility], alert and oriented x3. SKIN: Warm and dry. Tender 2 cm erythematous patch on the left dorsal hand, with eschar and pustule. Streaks of tender erythema on the forearm and upper arm. CARDIOVASCULAR: Regular rate and rhythm. RESPIRATORY: No accessory muscle use. Clear to auscultation. Breath sounds equal bilaterally. GASTROINTESTINAL: Abdomen soft, non-tender, nondistended. Hepatic and splenic margins not palpable. MUSCULOSKELETAL: Extremities without clubbing, cyanosis, or edema. No obvious deformities. NEUROLOGICAL: Awake and alert. No obvious cranial nerve deficits. Motor grossly within normal limits. Normal speech. PSYCHIATRIC: Appropriate mood and affect; insight and judgment normal. Results - Labs CBC & Chem 7: 06/05/18 09:15 06/05/18 09:15 Microbiology 06/05/18 09:15 Blood - Peripheral Aerobic Blood Culture - Preliminary No growth in 2 days 06/05/18 09:15 Blood - Peripheral Anaerobic Blood Culture - Preliminary No growth in 2 days 06/05/18 09:10 Blood - Peripheral Aerobic Blood Culture - Preliminary No growth in 2 days 06/05/18 09:10 Blood - Peripheral Anaerobic Blood Culture - Preliminary No growth in 2 days Assessment and Plan - Plan Left hand cellulitis/abscess MRSA, failed outpatient Keflex and Bactrim. Lymphangitis LUE The patient is afebrile and has a normal WBC count. He does have some redness going up the left side of his arm up to the mid medial bicep region. Continue IV vancomycin, consult pharmacy for vanco level. Consult ID as patient with failed treatment as OP , ID ff, appreciate recommendations Tylenol PRN pain Continue IV fluids. The patient will likely need 1 or 2 days of IV antibiotics and can then be transitioned over to p.o. antibiotics. Blood cultures pending Hand surgery consulted: No surgical intervention recommended at this time, recommends continuing IV abx L hand abscess, MRSA monitor hand for the need of I+D Coronary artery disease status post stent Continue aspirin Continue statin BPH Continue Flomax Polychondritis Patient experiences SOB due to polychondritis, takes diclofenac at home Restart diclofenac DVT ppx: Early ambulation Code Status: Full Discharge Planning: Pending blood cultures and abx response, ID and hand surgeon clearance Discussed with the patient, nurse.
[2018-06-08] MEDS: Sod Chloride 0.9% Inj 1,000 ML IV.CONT SCH ×2 (00:30→12:07)
[2018-06-08] MEDS: Vancomycin Inj 1,500 MG in Sodium Chlor 0.9% Inj 500 ML IV.SIG SCH (04:04)
[2018-06-08] MEDS: Folic Acid 1 MG Tablet PO SCH (10:01)
[2018-06-08] MEDS: Tolterodine Tartrate LA 4 MG Capsule PO SCH (10:01)
[2018-06-08 10:54] VITALS: O2SAT 97
--- NOTE | 2018-06-08 14:31 | P.PN ---
Subjective Interval history: Follow up: left hand cellulitis/abscess Patient reports that his hand has improved greatly wants to go home Physical Exam Vital signs: Vital Signs 06/07/18 15:56 06/07/18 16:00 06/07/18 20:00 Temperature 98.0 F 97.7 F Pulse Rate 70 59 L Respiratory Rate 23 18 Blood Pressure 148/70 H 121/69 Pulse Oximetry 99 99 97 06/08/18 00:00 06/08/18 04:00 06/08/18 08:00 Temperature 97.7 F 97.8 F 97.7 F Pulse Rate 65 57 L 66 Respiratory Rate 18 18 17 Blood Pressure 136/75 122/69 163/88 H Pulse Oximetry 97 94 L 97 Intake & Output 06/07/18 06/08/18 06/08/18 18:59 06:59 18:59 Intake Total 1994 1515 / 1515 1000 / 1000 Balance 1994 1515 / 1515 1000 / 1000 Weight 107 kg Intake: IV 1515 / 1515 1515 / 1515 1000 / 1000 NS Inj 1,000 ML @ 100 mls/hr IV 1000 / 1000 1000 / 1000 1000 / 1000 .CONT .Q10H [facility] Rx#:[id number] Vancomycin Inj 1,500 MG In NS 515 / 515 515 / 515 Inj 500 ML @ 250 mls/hr IV.SIG Q18H [facility] Rx#:[id number] Oral 480 / 480 Other: # Voids 3 3 Date of Last Bowel Movement 06/06/18 Narrative: GENERAL: 78 year old male in NAD, alert and oriented x3. SKIN: Warm and dry. Tender 2 cm erythematous patch on the left dorsal hand, with eschar and pustule. no Streaking at this time CARDIOVASCULAR: Regular rate and rhythm. RESPIRATORY: No accessory muscle use. Clear to auscultation. Breath sounds equal bilaterally. GASTROINTESTINAL: Abdomen soft, non-tender, nondistended. Hepatic and splenic margins not palpable. MUSCULOSKELETAL: Extremities without clubbing, cyanosis, or edema. No obvious deformities. NEUROLOGICAL: Awake and alert. No focal deficits noted. Motor grossly within normal limits. Normal speech. PSYCHIATRIC: Appropriate mood and affect; insight and judgment normal. Results - Labs CBC & Chem 7: 06/05/18 09:15 06/08/18 07:45 Laboratory Results - last 24 hr 06/08/18 07:45 Creatinine 0.84 Estimated GFR 89 Microbiology 06/05/18 09:15 Blood - Peripheral Aerobic Blood Culture - Preliminary No growth in 3 days 06/05/18 09:15 Blood - Peripheral Anaerobic Blood Culture - Preliminary No growth in 3 days 06/05/18 09:10 Blood - Peripheral Aerobic Blood Culture - Preliminary No growth in 3 days 06/05/18 09:10 Blood - Peripheral Anaerobic Blood Culture - Preliminary No growth in 3 days Assessment and Plan - Plan Left hand cellulitis/abscess MRSA, failed outpatient Keflex and Bactrim. Lymphangitis LUE The patient is afebrile and has a normal WBC count. He does have some redness going up the left side of his arm up to the mid medial bicep region. Continue IV vancomycin, consult pharmacy for vanco level. Consult ID as patient with failed treatment as OP , ID ff, appreciate recommendations Tylenol PRN pain Blood cultures No growth in 3 days Hand surgery consulted: No surgical intervention recommended at this time, recommends continuing IV abx L hand abscess, MRSA ID following, appreciate input Coronary artery disease status post stent Continue aspirin Continue statin BPH Continue Flomax Polychondritis Patient experiences SOB due to polychondritis, takes diclofenac at home Restart diclofenac DVT ppx: Early ambulation Code Status: Full Discharge Planning: Pending ID clearance and abx recommendations Discussed with the patient, nurse, Dr. Man and supervising physician Dr. Luo
--- NOTE | 2018-06-08 14:39 | P.PNID ---
Subjective Remarks: pt feels better no fever Yday drainage when squezzed, none today Antibiotics: vancomycin Allergies/Adverse Reactions: Allergies No Known Allergies Allergy (Verified 06/05/18 08:39) Objective Vital Signs 06/07/18 15:56 06/07/18 16:00 06/07/18 20:00 Temperature 98.0 F 97.7 F Pulse Rate 70 59 L Respiratory Rate 23 18 Blood Pressure 148/70 H 121/69 Pulse Oximetry 99 99 97 06/08/18 00:00 06/08/18 04:00 06/08/18 08:00 Temperature 97.7 F 97.8 F 97.7 F Pulse Rate 65 57 L 66 Respiratory Rate 18 18 17 Blood Pressure 136/75 122/69 163/88 H Pulse Oximetry 97 94 L 97 Intake & Output 06/07/18 06/08/18 06/08/18 18:59 06:59 18:59 Intake Total 1994 1515 / 1515 1000 / 1000 Balance 1994 1515 / 1515 1000 / 1000 Weight 107 kg Intake: IV 1515 / 1515 1515 / 1515 1000 / 1000 NS Inj 1,000 ML @ 100 mls/hr IV 1000 / 1000 1000 / 1000 1000 / 1000 .CONT .Q10H [facility] Rx#:[id number] Vancomycin Inj 1,500 MG In NS 515 / 515 515 / 515 Inj 500 ML @ 250 mls/hr IV.SIG Q18H [facility] Rx#:[id number] Oral 480 / 480 Other: # Voids 3 3 Date of Last Bowel Movement 06/06/18 06/05/18 09:15 Blood - Peripheral Aerobic Blood Culture - Preliminary No growth in 3 days 06/05/18 09:15 Blood - Peripheral Anaerobic Blood Culture - Preliminary No growth in 3 days 06/05/18 09:10 Blood - Peripheral Aerobic Blood Culture - Preliminary No growth in 3 days 06/05/18 09:10 Blood - Peripheral Anaerobic Blood Culture - Preliminary No growth in 3 days Lab - Chemistry Results 06/08/18 07:45 Creatinine 0.84 Estimated GFR 89 Imaging: ITS Impressions Hand X-Ray 06/05/18 09:01 CONCLUSION: Soft tissue swelling as above Physical Exam: GENERAL: NAD SKIN: Warm and dry. EYES: No scleral icterus. No injection or drainage. NECK: Supple, trachea midline. RESPIRATORY: Breathing unlaboured MUSCULOSKELETAL: No cyanosis, or edema. L hand with small dry non fluctuant lesion, no pus could be expressed, surrounded by 3 cm erythema, no edema no ascending lymphangits NEURO: alert awake non focal Assessment and Plan - Plan L hand abscess, MRSA - resolving nicely cellulitis, lymphngitis LUE OK to dc home from ID standpointCont Oral abx at home for 7-10 more days ( longer course with lingering smx): Doxycycline 100 PO BID pete Beltran CDecessary
--- NOTE | 2018-06-08 15:07 | P.DS ---
Date of admission: 06/05/18 11:07 Primary care physician: UNKNOWN Attending physician on discharge: Shena Luo Anticipated date of discharge: 06/08/18 Brief History from admission: This patient is a 78-year-old male with a history of coronary artery disease status post stent approximately 10 years ago. 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 He ended up having a scrape on the dorsal aspect of his left hand. 2 days later he started to have pain and swelling of the left hand and was seen in our emergency department. The patient was discharged on Keflex and Bactrim and he was given a tetanus shot as per documentation. Wound cultures from that day grew MRSA. The patient symptoms got worse and now he returned to our emergency department for evaluation and care. He denies having any fevers or chills. No chest pain, no shortness of breath, no diarrhea, no nausea or vomiting. Past medical history coronary artery disease status post stent 10 years ago, BPH Surgical history none Family history noncontributory Social history patient denies any history of tobacco use. He drinks socially approximately 2-3 drinks per week. DS: Medications - Discharge Medications Prescriptions: doxycycline hyclate 100 mg PO BID 10 Days #20 cap DS: Summary Hospital Course: Left hand cellulitis/abscess MRSA, failed outpatient Keflex and Bactrim. Lymphangitis LUE The patient is afebrile and has a normal WBC count. He does have some redness going up the left side of his arm up to the mid medial bicep region. Continue IV vancomycin, consult pharmacy for vanco level. 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, takes diclofenac at home Restart diclofenac DVT ppx: Early ambulation - Time Spent with Patient Total time spent providing and/or coordinating discharge services: Greater than 30 minutes - Quality: VTE Deep Vein Thrombosis/Pulmonary Embolism Present on Admission: No Exam Vital signs: Vital Signs 10/19/18 15:56 06/07/18 16:00 06/07/18 20:00 Temperature 98.0 F 97.7 F Pulse Rate 70 59 L Respiratory Rate 23 18 Blood Pressure 148/70 H 121/69 Pulse Oximetry 99 99 97 06/08/18 00:00 06/08/18 04:00 06/08/18 08:00 Temperature 97.7 F 97.8 F 97.7 F Pulse Rate 65 57 L 66 Respiratory Rate 18 18 17 Blood Pressure 136/75 122/69 163/88 H Pulse Oximetry 97 94 L 97 Intake & Output 06/07/18 06/08/18 06/08/18 18:59 06:59 18:59 Intake Total 1994 1515 / 1515 1000 / 1000 Balance 1994 1515 / 1515 1000 / 1000 Weight 107 kg Intake: IV 1515 / 1515 1515 / 1515 1000 / 1000 NS Inj 1,000 ML @ 100 mls/hr IV 1000 / 1000 1000 / 1000 1000 / 1000 .CONT .Q10H [facility] Rx#:[id number] Vancomycin Inj 1,500 MG In NS 515 / 515 515 / 515 Inj 500 ML @ 250 mls/hr IV.SIG Q18H [facility] Rx#:[id number] Oral 480 / 480 Other: # Voids 3 3 Date of Last Bowel Movement 06/06/18 Narrative: GENERAL: 78 year old male in NAD, alert and oriented x3. SKIN: Warm and dry. Tender 2 cm erythematous patch on the left dorsal hand, with eschar and pustule. no Streaking at this time CARDIOVASCULAR: Regular rate and rhythm. RESPIRATORY: No accessory muscle use. Clear to auscultation. Breath sounds equal bilaterally. GASTROINTESTINAL: Abdomen soft, non-tender, nondistended. Hepatic and splenic margins not palpable. MUSCULOSKELETAL: Extremities without clubbing, cyanosis, or edema. No obvious deformities. NEUROLOGICAL: Awake and alert. No focal deficits noted. Motor grossly within normal limits. Normal speech. PSYCHIATRIC: Appropriate mood and affect; insight and judgment normal. Results Procedures completed during hospitalization: None Labs on day of discharge: Labs from last 24 hours 06/08/18 07:45 Creatinine 0.84 Estimated GFR 89 Preliminary micro results at discharge 06/05/18 09:15 Aerobic Blood Culture - Preliminary Blood - Peripheral No growth in 3 days Anaerobic Blood Culture - Preliminary No growth in 3 days 06/05/18 09:10 Aerobic Blood Culture - Preliminary Blood - Peripheral No growth in 3 days Anaerobic Blood Culture - Preliminary No growth in 3 days - Impressions ITS Impressions Hand X-Ray 06/05/18 09:01 CONCLUSION: Soft tissue swelling as above Discharge Plan - Discharge Disposition Patient Disposition: 01 Discharge Home - Discharge Condition Condition: Stable - Discharge Order Discharge Orders: Discharge Order (Routine); Ordered 06/08/18 Ordered By: Juany Pemberton - Discharge Details Anticipated Discharge Date: 06/08/18 - Physicians Team Primary Care Provider: UNKNOWN, Attending Provider: Shena Luo Other Providers: Andrew Sheehan MD ; Kinga Man MD
[2018-06-08 15:41] VITALS: BP 140/85; PULSE 69; RESP 18; TEMP 97.5
[2018-06-08] MEDS ORDERED: Pharmacy Ordered Lab Info OTHER ONE (21:45)
== END 2018-06-08 15:56 | disposition home or self-care (01) ==
LOC: NEPC 08:30 → NEDA 11:07 → INTOOBSV 11:07 → NEDA 14:30 → N04 14:32
PROVIDERS: ADMIT Internal Medicine; ATTEND Internal Medicine